=== PATIENT | male | born 1970 | race Caucasian/White ===

== ENCOUNTER 2016-06-27 09:45 | Emergency (ER) | payer BC ==
[2016-06-27 11:08] VITALS: BP 148/98
--- NOTE | 2016-06-27 11:23 | UC ---
Throat Pain/Nasal John HPI - HPI Summary HPI Summary: pt c/o sinus pressure and pain X 10 days. reports having a "cold" begin about 2 weeks ago that has now "filled up his sinuses" . c/O BENITEZ, fatigue, generalized malaise, sinus pressure and nasal congestion. - History of Current Complaint Chief Complaint: UCRespiratory Stated Complaint: SINUS Time Seen by Provider: 06/27/16 11:07 Hx Obtained From: Patient Onset/Duration: Gradual Onset, Lasting Weeks Severity: Moderate Associated Signs & Symptoms: Positive: Sinus Discomfort - Allergies/Home Medications Allergies/Adverse Reactions: Allergies Allergy/AdvReac Type Severity Reaction Status Date / Time No Known Allergies Allergy Verified 06/27/16 11:09 PMH/Surg Hx/FS Hx/Imm Hx Previously Healthy: Yes - Surgical History Surgical History: Yes Surgery Procedure, Year, and Place: right knee - Family History Known Family History: Positive: Cardiac Disease - Social History Occupation: Employed Full-time Lives: With Family Alcohol Use: Occasionally Substance Use Type: None Smoking Status (MU): Never Smoked Tobacco Review of Systems Constitutional: Chills, Fatigue Skin: Negative Eyes: Negative ENT: Other - sinus pressure, nasal cogestion Respiratory: Negative Cardiovascular: Negative Gastrointestinal: Negative Genitourinary: Negative Motor: Negative Neurovascular: Negative Musculoskeletal: Negative Neurological: Headache Psychological: Negative All Other Systems Reviewed And Are Negative: Yes Physical Exam Triage Information Reviewed: Yes Appearance: Ill-Appearing Vital Signs: Initial Vital Signs Temp 97.9 F 06/27/16 11:05 Pulse 65 06/27/16 11:05 Resp 16 06/27/16 11:05 BP 148/98 06/27/16 11:05 Pulse Ox 99 06/27/16 11:05 Vital Signs Reviewed: Yes Eye Exam: Normal ENT Exam: Other ENT: Positive: Nasal congestion, Other: - frontal sinus tenderness Neck exam: Normal Respiratory Exam: Normal Cardiovascular Exam: Normal Musculoskeletal Exam: Normal Neurological Exam: Normal Psychological Exam: Normal Skin Exam: Normal Throat Pain/Nasal Course/Dx - Differential Dx/Diagnosis Differential Diagnosis/HQI/PQRI: Influenza, Sinusitis, URI Provider Diagnoses: sinusitis Discharge - Discharge Plan Condition: Stable Disposition: HOME Prescriptions: Amoxicillin (*) 875 mg PO BID #20 tab Pseudoephedrine-Guaifenesin [Mucinex D 60-600 mg] 1 tab PO DAILY #10 tab Patient Education Materials: Sinusitis (ED) Referrals: Job Verma DO [Primary Care Provider] - Additional Instructions: Please follow up with PCP or return to clinic.
== END 2016-06-27 11:29 | disposition home or self-care (01) ==
LOC: UCCORT 09:45
DX: J32.9 Chronic sinusitis, unspecified (principal)
CPT/HCPCS: 99202; G0463

== ENCOUNTER 2016-08-26 11:43 | Emergency (ER) | payer BC ==
[2016-08-26 13:44] VITALS: BP 143/87
[2016-08-26] MEDS ORDERED: Albuterol 2.5 MG/3 ML NEB.SOL* (0.083%) INH ONE (13:52)
--- NOTE | 2016-08-26 14:13 | RAD ---
Indication: Chest heaviness. 2 views of the chest including dual energy PA views demonstrate no mediastinal shift. Heart is of normal size and configuration. Lung shah are clear. IMPRESSION: No active cardiopulmonary disease is noted.
--- NOTE | 2016-08-26 14:54 | UC ---
Respiratory Complaint HPI - HPI Summary HPI Summary: chest congestion, cough, ST, ear pain since 08/16/16. Now chest congestion is getting worse such that he had trouble breathing when he tried to run yesterday. No fever. Hx pneumonia in the past. - History of Current Complaint Chief Complaint: UCRespiratory Stated Complaint: CHEST CONGESTION,EAR PAIN Time Seen by Provider: 08/26/16 13:46 Hx Obtained From: Patient Onset/Duration: Gradual Onset, Lasting Days, Still Present Timing: Constant Severity Initially: Moderate Severity Currently: Moderate Pain Intensity: 7 Pain Scale Used: 0-10 Numeric Character: Cough: Nonproductive Aggravating Factors: Exertion, Deep Breaths Associated Signs And Symptoms: Positive: Wheezing, URI, Nasal Congestion, Sinus Discomfort. Negative: Fever, Calf Pain, Calf Swelling - Risk Factors Pulmonary Embolism Risk Factors: Negative Cardiac Risk Factors: Negative Pseudomonas Risk Factors: Negative Tuberculosis Risk Factors: Negative - Allergies/Home Medications Allergies/Adverse Reactions: Allergies Allergy/AdvReac Type Severity Reaction Status Date / Time No Known Allergies Allergy Verified 08/26/16 13:36 Home Medications: Home Medications Multiple Vitamin [Antioxidant Formula [id number]] 1 cap PO DAILY 08/26/16 [ History Confirmed 08/26/16] PMH/Surg Hx/FS Hx/Imm Hx Previously Healthy: Yes - Surgical History Surgical History: Yes Surgery Procedure, Year, and Place: right knee-X 2 - Family History Known Family History: Positive: Cardiac Disease - Social History Occupation: Employed Full-time Lives: With Family Alcohol Use: Occasionally Substance Use Type: None Smoking Status (MU): Never Smoked Tobacco - Immunization History Most Recent Influenza Vaccination: MAR 2016 Review of Systems Constitutional: Negative Skin: Negative Eyes: Negative ENT: Sore Throat Respiratory: Cough Cardiovascular: Other - chest heaviness Gastrointestinal: Negative Genitourinary: Negative Motor: Negative Neurovascular: Negative Musculoskeletal: Negative Neurological: Negative Psychological: Negative All Other Systems Reviewed And Are Negative: Yes Physical Exam Triage Information Reviewed: Yes Vital Signs: Initial Vital Signs Temp 98.2 F 08/26/16 13:37 Pulse 58 08/26/16 13:37 Resp 20 08/26/16 13:37 BP 143/87 08/26/16 13:37 Pulse Ox 98 08/26/16 13:37 bradycardia, elevated BP noted Pt is physically fit, a runner, usual pulse for him. Vital Signs Reviewed: Yes Eyes: Positive: Conjunctiva Clear ENT: Positive: Pharynx normal, TMs normal, Other: - no sinus tenderness Neck: Positive: Supple, No Lymphadenopathy Respiratory: Positive: Decreased breath sounds, Wheezing, Other: - can't take a deep breath without coughing Cardiovascular: Positive: No Murmur, Pulses Normal, Brisk Capillary Refill, Bradycardia Musculoskeletal: Positive: Strength Intact, ROM Intact, No Edema Neurological: Positive: Alert, Muscle Tone Normal Psychological Exam: Normal Skin Exam: Normal UC Diagnostic Evaluation - Laboratory O2 Sat by Pulse Oximetry: 98 Re-Evaluation - Re-Evaluation First Eval Re-Evaluation Time: 15:10 Change: Improved - after neb Respiratory Course/Dx - Course Course Of Treatment: albuterol neb with increased aeration and clearing of wheezes. neg rapid A. CXR neg - Differential Dx/Diagnosis Differential Diagnosis/HQI/PQRI: Asthma, Bronchitis, Influenza, Lower Resp Infection, Sinusitis Provider Diagnoses: acute asthmatic bronchitis Discharge - Discharge Plan Condition: Stable Disposition: HOME Prescriptions: Albuterol HFA INHALER* [Ventolin HFA Inhaler*] 2 puff INH Q4H PRN #1 mdi PRN Reason: Cough guaiFENesin/CODIEN 100MG-10MG* [Robitussin AC 100Mg-10Mg*] 5 ml PO BEDTIME PRN # 50 ml MDD 5ml PRN Reason: Cough predniSONE TAB* [Deltasone TAB*] 40 mg PO DAILY #10 tab Patient Education Materials: Acute Bronchitis (ED), Bronchospasm (ED) Forms: *Work Release Referrals: Job Verma DO [Primary Care Provider] - 3 Days (follow up regarding your elevated blood pressure and today's visit. ) Additional Instructions: NOTE: Dr. Cordova would not transmit RX. Pt given paper copy of [facility] prescription given for Robitussin AC with Codeine 100mg-10mg. 5ml po qhs prn cough#50ml MDD 5ml. I handed the prescription to the patient myself. I spoke with Eh the pharmacist at [facility] who is able to fill the paper prescription, and will not fill any other copies that may transmit electronically. Kayla Dixon RN aware, also wrote note. Nikki alvarez IS also notified that RX would not transmit electronically.
== END 2016-08-26 15:18 | disposition home or self-care (01) ==
LOC: UCCORT 11:43
DX: J45.901 Unspecified asthma with (acute) exacerbation (principal); R00.1 Bradycardia, unspecified
CPT/HCPCS: 71020; 87651; 93005; 99212; G0463

== ENCOUNTER 2016-08-30 07:03 | Emergency (ER) | payer BC ==
[2016-08-30 07:12] VITALS: BP 136/81
--- NOTE | 2016-08-30 07:19 | UC ---
Throat Pain/Nasal John HPI - HPI Summary HPI Summary: The patient comes in today for: 1. Sore throat: Onset: 5 days. Palliative/provocative: Swallowing makes it worse. Quality: Sharp Region: Right side of posterior pharynx only. Severity: 03/01 Time: Constant. Associated symptoms: Fevers: None. Rhinitis: None Cough: Dry. Strep exposure: None. Mononucleosis: Not before. HE states that he has not been able to sleep at night. * - History of Current Complaint Chief Complaint: UCRespiratory Stated Complaint: SORE THROAT Time Seen by Provider: 08/30/16 07:13 - Allergies/Home Medications Allergies/Adverse Reactions: Allergies Allergy/AdvReac Type Severity Reaction Status Date / Time No Known Allergies Allergy Verified 08/30/16 07:12 PMH/Surg Hx/FS Hx/Imm Hx Previously Healthy: No Endocrine History Of: Denies: Diabetes, Thyroid Disease, Hyperthyroidism, Hypothyroidism, Dyslipidemia Cardiovascular History Of: Denies: Cardiac Disorders, Hypertension, Pacemaker/ICD, Myocardial Infarction , Congestive Heart Failure, Atrial Fibrillation, Deep Vein Thrombosis, Bleeding Disorders Respiratory History Of: Denies: COPD, Asthma, Bronchitis, Pneumonia, Pulmonary Embolism GI/ History Of: Denies: Gastroesophageal Reflux, Ulcer, Gastrointestinal Bleed, Gall Bladder Disease, Kidney Stones, Diverticulitis, Renal Disease, Urosepsis Neurological History Of: Denies: TIA, CVA, Dementia, Seizures, Migraine Psychological History Of: Denies: Anxiety, Depression, Bipolar Disorder, Schizophrenia, Post Traumatic Stress Disorder Cancer History Of: Denies: Lung Cancer, Colorectal Cancer, Breast Cancer, Prostate Cancer Other History Of: Negative For: HIV, Hepatitis B, Hepatitis C, Anticoagulant Therapy - Surgical History Surgical History: Yes Surgery Procedure, Year, and Place: right knee-X 2 - Family History Known Family History: Positive: Cardiac Disease Negative: Hypertension, Diabetes - Social History Occupation: Employed Full-time Alcohol Use: Occasionally Substance Use Type: None Smoking Status (MU): Never Smoked Tobacco - Immunization History Most Recent Influenza Vaccination: MAR 2016 Review of Systems Constitutional: Negative Skin: Negative Eyes: Negative ENT: Sore Throat Respiratory: Negative Cardiovascular: Negative Gastrointestinal: Negative Genitourinary: Negative All Other Systems Reviewed And Are Negative: Yes Physical Exam Triage Information Reviewed: Yes Appearance: Well-Appearing, No Pain Distress, Well-Nourished Vital Signs: Initial Vital Signs Temp 98.1 F 08/30/16 07:04 Pulse 63 08/30/16 07:04 Resp 16 08/30/16 07:04 BP 136/81 08/30/16 07:04 Pulse Ox 97 08/30/16 07:04 Vital Signs Reviewed: Yes Eyes: Positive: Conjunctiva Clear. Negative: Discharge ENT: Positive: Hearing grossly normal, Other: - No posterior pharyngeal asymmetry.. Negative: Pharyngeal erythema, Nasal congestion, Nasal drainage, TM bulging, TM dull, TM red, Tonsillar swelling, Tonsillar exudate Dental: Negative: Gross Decay/Caries @, Dental Fracture @ Neck: Positive: Supple, Nontender, No Lymphadenopathy. Negative: Nuchal Rigidity Respiratory: Positive: Chest non-tender, Lungs clear, No respiratory distress, No accessory muscle use. Negative: Crackles, Wheezing Cardiovascular: Positive: RRR, No Murmur Abdomen Description: Positive: Nontender, No Organomegaly, Soft. Negative: Distended, Guarding Musculoskeletal: Positive: Strength Intact, ROM Intact Neurological: Positive: Alert, Muscle Tone Normal Psychological: Positive: Age Appropriate Behavior, Consolable Skin: Negative: rashes, breakdown Diagnostics - Laboratory Diagnostic Studies Completed/Ordered: strep test: (-) Throat Pain/Nasal Course/Dx - Course Course Of Treatment: Patient told of his test results and treatment options. - Differential Dx/Diagnosis Provider Diagnoses: High blood pressure: Pharyngitis: Discharge - Discharge Plan Condition: Stable Disposition: HOME Patient Education Materials: Pharyngitis (ED), Hypertension (ED) Referrals: Job Verma, [Primary Care Provider] - 1 Week (Please see your primary care provider in about one to two weeks to see how well you are doing. If you get worse, please be seen sooner. Your blood pressure can be checked then.) Additional Instructions: Take the viscous lidocaine and the Naproxen as needed for sore throat pain. If you continue to have problems and develop a yellow/green nasal discharge, cough with sinus pressure, starting the antibiotic (doxycycline) at that time may be helpful.
== END 2016-08-30 08:07 | disposition home or self-care (01) ==
LOC: UCCORT 07:03
DX: J02.9 Acute pharyngitis, unspecified (principal); R03.0 Elevated blood-pressure reading, without diagnosis of hypertension
CPT/HCPCS: 87651; 99212; G0463

== ENCOUNTER 2016-09-26 12:06 | Emergency (ER) | payer BC ==
[2016-09-26 12:25] VITALS: BP 130/84
[2016-09-26] MEDS ORDERED: Lidocaine 2% 10 ML* VIAL INJ ONE (12:40)
--- NOTE | 2016-09-26 13:00 | UC ---
Laceration HPI - HPI Summary HPI Summary: pt reports that he was using a knife an lacerated right 2nd finger. - History Of Current Complaint Chief Complaint: UCLaceration Stated Complaint: RIGHT INDEX LACERATION Time Seen by Provider: 09/26/16 12:54 Hx Obtained From: Patient Laceration Location: Finger - right 2nd finger Mechanism Of Injury: Sharp Trauma - knife Onset/Duration: Sudden Onset Severity: Mild Aggravating Factors: Movement Related History: Dominant Hand Right - Allergies/Home Medications Allergies/Adverse Reactions: Allergies Allergy/AdvReac Type Severity Reaction Status Date / Time No Known Allergies Allergy Verified 09/26/16 12:24 PMH/Surg Hx/FS Hx/Imm Hx Previously Healthy: Yes Endocrine History Of: Denies: Diabetes, Thyroid Disease, Hyperthyroidism, Hypothyroidism, Dyslipidemia Cardiovascular History Of: Denies: Cardiac Disorders, Hypertension, Pacemaker/ICD, Myocardial Infarction , Congestive Heart Failure, Atrial Fibrillation, Deep Vein Thrombosis, Bleeding Disorders Respiratory History Of: Denies: COPD, Asthma, Bronchitis, Pneumonia, Pulmonary Embolism GI/ History Of: Denies: Gastroesophageal Reflux, Ulcer, Gastrointestinal Bleed, Gall Bladder Disease, Kidney Stones, Diverticulitis, Renal Disease, Urosepsis Neurological History Of: Denies: TIA, CVA, Dementia, Seizures, Migraine Psychological History Of: Denies: Anxiety, Depression, Bipolar Disorder, Schizophrenia, Post Traumatic Stress Disorder Cancer History Of: Denies: Lung Cancer, Colorectal Cancer, Breast Cancer, Prostate Cancer Other History Of: Negative For: HIV, Hepatitis B, Hepatitis C, Anticoagulant Therapy - Surgical History Surgical History: Yes Surgery Procedure, Year, and Place: right knee-X 2 - Family History Known Family History: Positive: Cardiac Disease Negative: Hypertension, Diabetes - Social History Lives: With Family Alcohol Use: Occasionally Substance Use Type: None Smoking Status (MU): Never Smoked Tobacco - Immunization History Most Recent Influenza Vaccination: MAR 2016 Most Recent Tetanus Shot: UTD Review of Systems Constitutional: Negative Skin: Other - laceration righ t 2nd finger Eyes: Negative ENT: Negative Respiratory: Negative Cardiovascular: Negative Gastrointestinal: Negative Genitourinary: Negative Motor: Negative Neurovascular: Negative Musculoskeletal: Myalgia Neurological: Negative Psychological: Negative All Other Systems Reviewed And Are Negative: Yes Physical Exam Triage Information Reviewed: Yes Appearance: Well-Appearing Vital Signs: Initial Vital Signs Temp 98.3 F 09/26/16 12:20 Pulse 75 09/26/16 12:20 BP 130/84 09/26/16 12:20 Vital Signs Reviewed: Yes Eye Exam: Normal Respiratory Exam: Other Respiratory: Positive: No respiratory distress Musculoskeletal Exam: Normal Musculoskeletal: Positive: ROM Limited @ - right 2nd finger, full ROM, brisk capillary refill, bleeding controlled Neurological Exam: Normal Psychological Exam: Normal Skin Exam: Other - laceratyion to right index finger lateral aspect measuring 2.5 cm Laceration Repair - Laceration Repair 1 Description: Linear Laceration Size After Repair: Length (cm) - 2.5, Width (mm) - 3mm, Depth (mm) - 3mm Modified For Repair: No Irrigation With Pressure Irrigation Device: Yes Closure Material: Skin Adhesive - I discussed the use of skin adhesive and sutures and the pt requested skin adhesive. Pt is aware carmina he must weara finger splint for minimum of 3 days and must return for wound recheck in 3 days or earlier. Closure Method: Single Layer Suture Of: Skin Laceration Course/Dx - Course/Dx Course Of Treatment: I discussed with the pt sutures and skin adhesive. The pt requested skin adhesive and I disucssed the limitation of adhesive over suturing. Pt verbalized understanding and agreed to plan of care. - Differential Dx - Laceration/Wound Differental Diagnoses: Laceration - repaired with skin adhesive Provider Diagnoses: laceration right 2nd finger. Discharge - Discharge Plan Condition: Stable Disposition: HOME Prescriptions: Cephalexin CAP* [Keflex 500 CAP*] 500 mg PO Q12H #10 cap Patient Education Materials: Skin Adhesive Care (ED), Finger Laceration (ED) Referrals: Job Verma DO [Primary Care Provider] - (PLease follow up with PCP in 3 days for wound check or return to clinic in 3 days or earlier if necessary for wound check. ) Additional Instructions: Please return to clinic in 3 days for wound check or follow up with your provider.
== END 2016-09-26 13:40 | disposition home or self-care (01) ==
LOC: UCCORT 12:06
DX: S61.210A Laceration without foreign body of right index finger without damage to nail, initial encounter (principal); W26.0XXA Contact with knife, initial encounter; Y93.9 Activity, unspecified; Y99.9 Unspecified external cause status
CPT/HCPCS: 12001; 99211; G0463; J2001